=== PATIENT | female | born 2005 | race Hispanic/Latino ===

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

== ENCOUNTER 2023-03-07 09:55 | Emergency (ER) | payer OTHER ==
[2023-03-07] MEDS ORDERED: Acetaminophen 500 MG TAB ONE (10:16)
[2023-03-07] MEDS ORDERED: Ondansetron ODT 4 MG TAB ONE (10:19)
== END 2023-03-07 11:31 | disposition home or self-care (01) ==
LOC: NAV ERS 09:55
DX: J10.1 Influenza due to other identified influenza virus with other respiratory manifestations (principal)
CPT/HCPCS: 87081; 87430; 87804; 99283; Q0162